=== PATIENT | female | born 1995 | race Caucasian/White ===

== ENCOUNTER 2021-10-27 13:54 | Emergency (ER) | payer MEDICAID, SELFPAY | END 2021-10-27 22:49 | disposition left against medical advice (07) | LOC: HO.ED 22:45 | PROVIDERS: Emergency Provider Emergency Medicine | DX: R10.9 Unspecified abdominal pain (principal) ==

== ENCOUNTER 2022-01-13 01:15 | Emergency (ER) | payer MEDICAID, SELFPAY ==
[2022-01-13 01:26] VITALS: BP 111/72; PULSE 83; RESP 14; TEMP 36.5; O2SAT 96
[2022-01-13 01:39] VITALS: BP 111/72; BP 121/81; PULSE 100; PULSE 83; RESP 14; TEMP 36.5; O2SAT 96; O2SAT 99; BMI 19.5
--- NOTE | 2022-01-13 01:49 | ED.NAVMDI ---
HPI - Nausea/Vomiting/Diarrhea General Chief complaint: Nausea/Vomiting/Diarrhea Stated complaint: N/V/D/ABD PAIN Time Seen by Provider: 01/13/22 01:47 Source: patient and EMS Mode of arrival: EMS Limitations: no limitations History of Present Illness HPI Narrative: 26-year-old female came in for evaluation of nausea, vomiting, diarrhea. Symptoms started 3 days ago, recently came back from [place] for a family gathering democrat, multiple family member reportedly had similar symptoms of nausea, vomiting, diarrhea including the patient's children, patient's symptoms started with nausea and vomiting that is now improving, but patient is having a frequent nonbloody watery diarrhea. Patient complained of no abdominal pain. Related Data Previous Rx's Medication Instructions Recorded loperamide 2 mg capsule (Imodium 2 mg PO Q6H PRN #6 cap 01/13/22 A-D) Allergies Allergy/AdvReac Type Severity Reaction Status Date / Time morphine [MORPHINE] Allergy Unknown VOMITING, Verified 01/13/22 03:28 nausea and vomiting Review of Systems Review of Systems: All other systems are reviewed and are negative Constitutional: Reports as per HPI and Reports no additional constitutional complaints Eyes: Reports as per HPI and Reports no additional eye complaints Reports system reviewed and no additional complaints, except as documented Cardiovascular: Reports as per HPI and Reports no additional cardiovascular complaints Respiratory: Reports as per HPI and Reports no additional respiratory complaints Gastrointestinal: Reports as per HPI and Reports no additional gastrointestinal complaints Genitourinary: Reports no additional female genitourinary complaints Musculoskeletal: Reports no additional musculoskeletal complaints Skin/Breast: Reports system reviewed and no additional complaints, except as docu Psychiatric: Reports no additional psychiatric complaints Endocrine: Reports no additional endocrine complaints Hematologic/Lymphatic: Reports no additional hematologic/lymphatic complaints Allergic/Immunologic: Reports no additional allergic/immunologic complaints Reports system reviewed and no additional complaints, except as documented and Reports Abnormal speech present [facility] Past Medical History Medical History No known health problems Surgical History No history of previous surgery Social History Social History Alcohol intake: never Patient Tobacco Use Status: Current everyday Tobacco user Use of substances other than those prescribed or required for medical reasons: No Advance Directives: No Advance Directives Information Provided: Yes Patient : No Physical Exam Vital Signs: Vital Signs: Last Vital Signs Temp 97.7 F 01/13/22 01:39 Pulse 83 01/13/22 01:39 Resp 14 01/13/22 01:39 BP 111/72 01/13/22 01:39 Pulse Ox 96 01/13/22 01:39 BMI result Body Mass Index 19.5 Vital signs have been reviewed as appeared to be correct. Blood pressure normal. Heart rate normal. Respiration rate normal. Temperature normal. Oxygen saturation normal. Appearance: Alert. Oriented X3. No acute distress. Head: Normal external exam. Normocephalic. Atraumatic. No Rondon signs noted. No raccoon eyes noted Eyes: PERRLA. EOMI. Conjunctiva and sclera normal. Eyelids normal. ENT: TM's Normal. Pharynx normal. Uvula midline. Moist mucous membranes. No trismus noted. No drooling noted. No muffled voice noted. Neck: Normal inspection. Neck supple. FROM. No adenopathy. Thyroid Normal. No meningeal signs. No neck mass noted. CVS: Normal heart rate and rhythm. Heart sound normal. No murmurs noted. Pulses normal throughout. Respiratory: No respiratory distress. Painless inspiration. Breath sounds normal. No wheezes/rales/rhonchi noted. Chest nontender. No accessory muscle usage noted or decreased air movement noted. Abdomen: Soft and nontender. Bowel sounds normal in all 4 quadrants. No distention noted. No organomegaly noted. No visible injury noted. Back: No CVA tenderness. Full range of motion noted. Skin: Skin warm and dry. Normal skin color. Normal skin turgor. No rashes/lesions/lacerations noted. Extremities: No lower extremity edema. Extremities exhibit normal range of motion. Extremities nontender. Neuro: Oriented X 3. Cranial nerve exam: II-XII are grossly intact No motor deficit. No sensory deficit. Reflexes normal. Course Course Course Narrative: Assessment and plan. 26-year-old female came in with 4-5 days of gastroenteritis symptoms with many family member with the same symptoms, improvement of the nausea and vomiting but persisting nonbloody watery diarrhea, patient received in the emergency department 2 L of normal saline, Ativan for anxiety, and Imodium for diarrhea control. Repeat abdominal exam showed no tenderness, no rebound, no guarding. Able to tolerate p.o. intake. MDM - Nausea/Vomiting/Diarrhea MDM Narrative Medical decision making narrative: Assessment and plan. Gastroenteritis. Patient is able to tolerate p.o. intake and received IV hydration in the emergency department, patient also received Imodium. Will discharge with instruction to drink plenty of fluids for hydration. Lab Data Attestation: I reviewed the patient's lab results. Result diagrams: 01/13/22 02:27 01/13/22 02:27 Labs: Lab Results 01/13/22 01/13/22 01/13/22 Range/Units 02:25 02:25 02:27 WBC 9.9 (4.8-10.8) X10*3/uL RBC 6.15 H (4.20-5.50) X10*6/uL Hgb 16.7 H (12.0-16.0) g/dl Hct 54.2 H (37.0-47.0) % MCV 88.1 (80.0-98.0) fL MCH 27.2 (27.0-33.0) pg MCHC 30.8 L (31.0-35.0) g/dl RDW 13.7 (11.0-16.0) % Plt Count 375 (160-400) X10*3/uL MPV 9.7 (9.4-12.3) fL Immature Gran % (Auto) 0.4 (0.0-0.4) % Neut % (Auto) 76.4 H (45-73) % Lymph % (Auto) 13.8 L (20-40) % Curry % (Auto) 8.7 (2-11) % Eos % (Auto) 0.4 (0-4) % Baso % (Auto) 0.3 (0-2) % Lymph # (Auto) 1.4 (1.2-4.9) X10*3/uL Curry # (Auto) 0.9 (0.1-1.2) X10*3/uL Eos # (Auto) 0.0 (0.0-0.4) X10*3/uL Baso # (Auto) 0.0 (0.0-0.2) X10*3/uL Abs Immat Gran (auto) 0.04 H (0.00-0.03) X10*3/uL Absolute Neuts (auto) 7.6 (2.0-8.3) x10*3/uL Absolute Nucleated RBC 0.000 (0.0-0.012) X10*3/uL Nucleated RBC % (auto) 0.0 (0.0-0.2) /100WBC Sodium (135-145) mmol/L Potassium (3.3-5.1) mmol/L Chloride (96-108) mmol/L Carbon Dioxide (22-29) mmol/L Anion Gap (12-20) BUN (9-16) mg/dL Creatinine (0.5-1.4) mg/dL Estim Creat Clear Calc Estimated GFR Random Glucose (60-115) mg/dL Calcium (8.4-10.2) mg/dL Lipase (8-78) U/L Urine Color YELLOW Urine Appearance CLEAR Urine pH 5.5 (5.0-8.0) Ur Specific [place] >= 1.030 H (1.005-1.025) Urine Protein TRACE (NEG-TRACE) MG/DL Urine Glucose (UA) NEG (NEG) MG/DL Urine Ketones NEG (NEG) MG/DL Urine Blood NEG (NEG) Urine Nitrite NEG (NEG) Ur Leukocyte Esterase NEG (NEG) Urine Test NEGATIVE (NEGATIVE) 01/13/22 Range/Units 02:27 WBC (4.8-10.8) X10*3/uL RBC (4.20-5.50) X10*6/uL Hgb (12.0-16.0) g/dl Hct (37.0-47.0) % MCV (80.0-98.0) fL MCH (27.0-33.0) pg MCHC (31.0-35.0) g/dl RDW (11.0-16.0) % Plt Count (160-400) X10*3/uL MPV (9.4-12.3) fL Immature Gran % (Auto) (0.0-0.4) % Neut % (Auto) (45-73) % Lymph % (Auto) (20-40) % Curry % (Auto) (2-11) % Eos % (Auto) (0-4) % Baso % (Auto) (0-2) % Lymph # (Auto) (1.2-4.9) X10*3/uL Curry # (Auto) (0.1-1.2) X10*3/uL Eos # (Auto) (0.0-0.4) X10*3/uL Baso # (Auto) (0.0-0.2) X10*3/uL Abs Immat Gran (auto) (0.00-0.03) X10*3/uL Absolute Neuts (auto) (2.0-8.3) x10*3/uL Absolute Nucleated RBC (0.0-0.012) X10*3/uL Nucleated RBC % (auto) (0.0-0.2) /100WBC Sodium 143 (135-145) mmol/L Potassium 5.4 H (3.3-5.1) mmol/L Chloride 112 H (96-108) mmol/L Carbon Dioxide 20 L (22-29) mmol/L Anion Gap 16 (12-20) BUN 14 (9-16) mg/dL Creatinine 1.37 (0.5-1.4) mg/dL Estim Creat Clear Calc 55.2 Estimated GFR 46 Random Glucose 75 (60-115) mg/dL Calcium 10.4 H (8.4-10.2) mg/dL Lipase 17 (8-78) U/L Urine Color Urine Appearance Urine pH (5.0-8.0) Ur Specific [place] (1.005-1.025) Urine Protein (NEG-TRACE) MG/DL Urine Glucose (UA) (NEG) MG/DL Urine Ketones (NEG) MG/DL Urine Blood (NEG) Urine Nitrite (NEG) Ur Leukocyte Esterase (NEG) Urine Test (NEGATIVE) Discharge Plan Discharge Clinical Impression: Gastroenteritis Patient Disposition: Home, Self-Care Instructions: Gastroenteritis (ED) Prescriptions: New loperamide [Imodium A-D] 2 mg capsule 2 mg PO Q6H PRN (Reason: loose stool) Qty: 6 0RF Referrals: Jade Lucia PA [Primary Care Provider] -
[2022-01-13] MEDS: 0.9 % Sodium Chloride 1,000 ML 999 ML IV ×2 (02:31→03:59)
[2022-01-13 02:32] LABS: Basophils Percent Auto 0.3 % (0-2); Eosinophils Percent Auto 0.4 % (0-4); Hematocrit 54.2 % (37.0-47.0); Hemoglobin 16.7 g/dl (12.0-16.0); Imm Gran Abs Auto 0.04 X10*3/uL (0.00-0.03); Imm Gran Pct Auto 0.4 % (0.0-0.4); Lymphocytes Absolute Auto 1.4 X10*3/uL (1.2-4.9); Lymphocytes Percent Auto 13.8 % (20-40); MANUAL DIFF FLAG NO; Mean Corpuscular HGB Conc 30.8 g/dl (31.0-35.0); Mean Corpuscular Hemoglobin 27.2 pg (27.0-33.0); Mean Corpuscular Volume 88.1 fL (80.0-98.0); Mean Platelet Volume 9.7 fL (9.4-12.3); Monocytes Absolute Auto 0.9 X10*3/uL (0.1-1.2); Monocytes Percent Auto 8.7 % (2-11); Neutrophils Absolute Auto 7.6 x10*3/uL (2.0-8.3); Neutrophils Percent Auto 76.4 % (45-73); Platelet Count 375 X10*3/uL (160-400); Red Blood Count 6.15 X10*6/uL (4.20-5.50); Red Cell Distribution Width 13.7 % (11.0-16.0); White Blood Count 9.9 X10*3/uL (4.8-10.8)
[2022-01-13] MEDS: Loperamide HCl 2 MG CAPSULE PO ×2 (02:33→03:40)
[2022-01-13 02:34] LABS: Appearance Urine CLEAR; Color Urine YELLOW; Glucose Urine UA NEG (NEG); Leukocyte Esterase Urine NEG (NEG); Nitrite Urine NEG (NEG); PH 5.5 (5.0-8.0); Specific Gravity - Urine >= 1.030 (1.005-1.025); Urine Blood NEG (NEG); Urine Ketones NEG (NEG); Urine Protein TRACE MG/DL (NEG-TRACE)
[2022-01-13 02:36] LABS: UPreg QC Valid YES; Urine Pregnancy NEGATIVE (NEGATIVE)
[2022-01-13 02:53] LABS: Anion Gap 16 (12-20); Blood Urea Nitrogen 14 mg/dL (9-16); Calcium 10.4 mg/dL (8.4-10.2); Carbon Dioxide 20 mmol/L (22-29); Chloride 112 mmol/L (96-108); Creatinine Clr Calc Pharmacy 55.2; Estimated Glomerular Filt Rate 46; Glucose Random 75 mg/dL (60-115); Lipase 17 U/L (8-78); Potassium 5.4 mmol/L (3.3-5.1); Sodium 143 mmol/L (135-145)
[2022-01-13] MEDS: LORazepam 1 MG TABLET PO (03:40)
--- NOTE | 2022-01-13 03:41 | PC.NURSE ---
Patient has been verbally abusive to staff. Screaming and yelling at staff about us not helping her. Staff has medicated her and given her anything she asked for.
[2022-01-13 05:17] VITALS: PULSE 84; RESP 17; O2SAT 96
== END 2022-01-13 06:14 | disposition home or self-care (01) ==
PROVIDERS: Emergency Provider Emergency Medicine; PCP Physician Assistant
DX: K52.9 Noninfective gastroenteritis and colitis, unspecified (principal); R11.2 Nausea with vomiting, unspecified; F17.200 Nicotine dependence, unspecified, uncomplicated
CPT/HCPCS: 36415; 80048; 81003; 81025; 83690; 85025; 96360; 96361; 99284

== ENCOUNTER 2022-02-21 08:45 | Outpatient (RCR) | payer OTHER, SELFPAY ==
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
--- NOTE | 2022-02-10 14:39 | PC.NURSE ---
Case opened in treatment team
--- NOTE | 2022-02-12 11:14 | P.PNPSP_ITS ---
Subjective Subjective Date of Service: 02/12/22 Reason For Visit: PTSD,bipolar,anxiety,depression Guardianship: No Medical Problems Affecting Mental Status: No Interim History: Reports continued anxiety and depression. Upset earlier in day, frustrated. I need to process my feelings Finding groups helpful. No SI/HI reported, no safety concern at this time. Stopped prn quetiapine, was too sedating. Medication Compliance: Yes Side effects from medications: Yes (P.r.n. quetiapine 12.5 mg was too sedating, stopped after 1 day.) Attending Groups: Yes Review of Systems Acute medical concerns: No Medical Review of Systems: unchanged Mental Status Exam Mental Status Exam Narrative: NAD. Anxious, irritable affect. Denies SI/HI. Patient Appearance: Appropriate Patient Orientation: Person, Place, Time and Situation Level of Consciousness: Awake and Alert Patient Behavior: Talkative, Cooperative, Anxious and Good Eye Contact Mood Description: Depressed and Anxious Affect Description: Anxious (irritable at times. ) Patient Cognition Impaired: No Ability to Follow Directions: Good Speech Pattern: Clear, Spontaneous Speech, Rapid, Excessive and Pressured Memory Description: Intact Hallucinations: None Delusions: Not Present Perceptual Disturbances: Depersonalization Thought Process: Intact Thought Content: positive for Intact Depressive Symptoms: Increased Anxiety, Increased Irritability, Loss of Int. in Activity, Feelings of Guilt, Unhappiness and Difficulty Concentrating Judgement: Fair Assessment & Plan Assessment & Plan (1) Major depressive disorder, recurrent, moderate: Status: Acute Code(s): F33.1 - Major depressive disorder, recurrent, moderate Assessment and Plan: Reports continued anxiety and depression. States ?my anxiety and depression are still out of control ?. Requesting medication change for anxiety, as well as difficulty managing emotional lability. Upset earlier in day, frustrated. I need to process my feelings . States that a person that helps her while she is in [place] and is also it very reliable person did not show up this morning. She became tearful, and called her father. He left work in order to help her. Finding groups helpful. No SI/HI reported, no safety concern at this time. Stopped prn quetiapine, was too sedating. Reports that she took it 1 day, and fell asleep. She states that she was unable to function with it during the day. We discussed stopping the p.r.n. Seroquel, and starting p.r.n. hydroxyzine. She was in agreement with this plan. Also discussed increase of Trileptal this week. She was in agreement. (2) Post-traumatic stress disorder, chronic: Status: Acute Code(s): F43.12 - Post-traumatic stress disorder, chronic Assessment and Plan: Patient reports her children's father is getting at a long-term soon, which is causing her increased PTSD symptoms as well as anxiety. She states that she needs to work to have a plan in place for safety. (3) Attention-deficit hyperactivity disorder, predominantly hyperactive type: Status: Acute Code(s): F90.1 - Attention-deficit hyperactivity disorder, predominantly hyperactive type Plan 1. Continue with current [facility] plan of care 2. Discontinue p.r.n. quetiapine during day. 3. Add hydroxyzine 25 mg q.i.d. p.r.n. for anxiety. 4. Increase Trileptal to 450 mg b.i.d.. Patient educated on: diagnosis, medication risk/benefits and therapeutic strategies Informed Consent: understands Reason for contiued partial hosp. stay Substantial Risk for: inability to function, rapid decompensation and med/psych decompensation Certification I certify that partial hospital treatment is medically necessary due to the symptoms and problems resulting from the patient's mental illness and the failure to treat the patient at the partial hospital level of care would likely result in the patient requiring inpatient psychiatric care which could not be prevented at a less intensive level of care. I spent minutes with the patient and/or on the patient floor today, greater than?50% of which was spent counseling/coordinating care. Discharge Plan Discharge Attending provider: Hoang Britt Medications: New oxcarbazepine [Trileptal] 300 mg tablet 450 mg PO BID 7 Days Qty: 21 0RF hydroxyzine HCl 25 mg tablet 25 mg PO QID PRN (Reason: anxiety) Qty: 28 0RF No Action albuterol sulfate [ProAir HFA] 90 mcg/actuation Hfa Aerosol Inhaler 2 puff INHALATION Q4H PRN (Reason: Shortness Of Breath) 0RF duloxetine 20 mg Capsule,Delayed Release(Dr/Ec) 20 mg PO BID 0RF quetiapine [Seroquel] 50 mg Tablet 50 mg PO BEDTIME 0RF Stand Alone Forms: Patient Portal Discharge page Telehealth Telehealth Location of provider rendering services: practice address Location of patient: address on file Patient Identification confirmed using: Name, : Yes Telehealth method: video Patient verbally consented to treatment: Yes Patient verbally consented to billing insurance company: Yes Patient informed of any privacy concerns related to visit: Yes Minutes spent on Phone/Video with Pt.: 20
--- NOTE | 2022-02-19 16:13 | P.PNPSP_ITS ---
Subjective Subjective Date of Service: 02/19/22 Reason For Visit: PTSD,bipolar,anxiety,depression Guardianship: No Medical Problems Affecting Mental Status: No Interim History: Patient describes mood as ?much better ?. States that she stopped taking her medications after Thursday. States that Thursday she had a nervous breakdown, screaming, yelling. Reports that whole day crying and shaking, called her aunt to stay with her. States ?I need my medication back ?. No SI, no safety concern. Medication Compliance: No Attending Groups: Yes Review of Systems Acute medical concerns: No Medical Review of Systems: unchanged Review of Systems Review of Systems Yes all other systems are reviewed and are negative Constitutional: Reports no additional constitutional complaints Mental Status Exam Mental Status Exam Narrative: NAD. Anxious, irritable affect. Denies SI/HI. Patient Appearance: Appropriate Patient Orientation: Person, Place, Time and Situation Level of Consciousness: Awake and Alert Patient Behavior: Talkative, Cooperative, Anxious and Good Eye Contact Mood Description: Depressed and Anxious Affect Description: Anxious (irritable at times. ) and Labile Patient Cognition Impaired: No Ability to Follow Directions: Good Speech Pattern: Clear, Spontaneous Speech, Rapid, Excessive and Pressured Memory Description: Intact Hallucinations: None Delusions: Not Present Perceptual Disturbances: Depersonalization Thought Process: Intact Thought Content: positive for Intact Depressive Symptoms: Increased Anxiety, Increased Irritability, Loss of Int. in Activity, Feelings of Guilt, Unhappiness and Difficulty Concentrating Judgement: Fair Assessment & Plan Assessment & Plan (1) Major depressive disorder, recurrent, moderate: Status: Acute Code(s): F33.1 - Major depressive disorder, recurrent, moderate Assessment and Plan: Patient presents with labile mood. reports stopped taking her medications Trileptal and hydroxyzine abruptly after Thursday. Has miss past several days of medications. reports feeling overwhelmed, tearful at times. Angry with her outpatient provider, states that he will no longer provide her Ativan, which she believe she needs in order to control her anxiety. Also angry that he will not consider that she has ADHD and that she may need medications. She is asking that we communicate with him, and will ask him to call here. She is being discharged from program on Thursday. She plans to call his office today to schedule an appointment. She states that she does not like the way that her medications make her feel, but is now considering restarting them today. Asks for refills today. Has continued with Seroquel at bedtime, reports that this does help her sleep. No SI/HI/SIB, no safety concern at this time. (2) Post-traumatic stress disorder, chronic: Status: Acute Code(s): F43.12 - Post-traumatic stress disorder, chronic (3) Attention-deficit hyperactivity disorder, predominantly hyperactive type: Status: Acute Code(s): F90.1 - Attention-deficit hyperactivity disorder, predominantly hyperactive type Plan Patient has asked this provider to communicate with her outpatient provider. She states she would like to past my contact information on to her provider an ask him to call me. I told her this is fine, and that we also send a summary/list of medications to her providers upon discharge from [facility]. 1. Patient to resume Trileptal today. Also to resume p.r.n. hydroxyzine as needed. 2. Patient to continue other medications as prescribed. 3. Continue with current [facility] plan of care. 4. Follow-up as per protocol. Patient educated on: diagnosis, medication risk/benefits and therapeutic strategies Informed Consent: understands Reason for contiued partial hosp. stay Substantial Risk for: inability to function, rapid decompensation and med/psych decompensation Certification I certify that partial hospital treatment is medically necessary due to the symptoms and problems resulting from the patient's mental illness and the failure to treat the patient at the partial hospital level of care would likely result in the patient requiring inpatient psychiatric care which could not be prevented at a less intensive level of care. I spent minutes with the patient and/or on the patient floor today, greater than?50% of which was spent counseling/coordinating care. Discharge Plan Discharge Attending provider: Hoang Britt Medications: New oxcarbazepine [Trileptal] 300 mg tablet 450 mg PO BID 30 Days Qty: 90 0RF prazosin 1 mg capsule 1 mg PO BEDTIME 30 Days Qty: 30 0RF hydroxyzine HCl 25 mg tablet 25 mg PO QID PRN (Reason: anxiety) Qty: 60 0RF No Action albuterol sulfate [ProAir HFA] 90 mcg/actuation Hfa Aerosol Inhaler 2 puff INHALATION Q4H PRN (Reason: Shortness Of Breath) 0RF duloxetine 20 mg Capsule,Delayed Release(Dr/Ec) 20 mg PO BID 0RF quetiapine [Seroquel] 50 mg Tablet 50 mg PO BEDTIME 0RF Stand Alone Forms: Patient Portal Discharge page Telehealth Telehealth Location of provider rendering services: practice address Location of patient: address on file Patient Identification confirmed using: Name, : Yes Telehealth method: video Patient verbally consented to treatment: Yes Patient verbally consented to billing insurance company: Yes Patient informed of any privacy concerns related to visit: Yes Minutes spent on Phone/Video with Pt.: 15
--- NOTE | 2022-02-21 18:15 | PC.NURSE ---
Discharge note: Patient discharged from [facility] 02/21/22. Routine discharge, patient states she is ready for discharge. Discharge to out patient providers. Patient states understanding of medications. Patient denies SI and HI without plan or intent. Safety plan was faxed to patient prior to discharge.
== END 2022-02-21 23:59 | disposition home or self-care (01) ==
LOC: HO.PHPA 08:45
PROVIDERS: Visit Provider Psychiatry & Neurology Psychiatry
DX: F43.12 Post-traumatic stress disorder, chronic (principal); F33.1 Major depressive disorder, recurrent, moderate; F90.1 Attention-deficit hyperactivity disorder, predominantly hyperactive type; Z79.899 Other long term (current) drug therapy
CPT/HCPCS: 90791; 90853

== ENCOUNTER 2022-06-02 16:37 | Emergency (ER) | payer MEDICAID, SELFPAY ==
[2022-06-02 17:10] VITALS: BP 121/69; PULSE 95; RESP 18; TEMP 36.5; O2SAT 96; BMI 21.9
[2022-06-02 17:24] LABS: MANUAL DIFF FLAG NO
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
[2022-06-02 17:36] LABS: Basophils Absolute Auto 0.1 X10*3/uL (0.0-0.2); Basophils Percent Auto 0.8 % (0-2); Eosinophils Absolute Auto 0.2 X10*3/uL (0.0-0.4); Eosinophils Percent Auto 1.5 % (0-4); Hematocrit 41.4 % (37.0-47.0); Hemoglobin 13.5 g/dl (12.0-16.0); Imm Gran Abs Auto 0.04 X10*3/uL (0.00-0.03); Imm Gran Pct Auto 0.4 % (0.0-0.4); Lymphocytes Absolute Auto 2.9 X10*3/uL (1.2-4.9); Lymphocytes Percent Auto 28.9 % (20-40); Mean Corpuscular HGB Conc 32.6 g/dl (31.0-35.0); Mean Corpuscular Hemoglobin 27.7 pg (27.0-33.0); Mean Platelet Volume 10.4 fL (9.4-12.3); Monocytes Absolute Auto 0.7 X10*3/uL (0.1-1.2); Monocytes Percent Auto 6.6 % (2-11); Neutrophils Absolute Auto 6.2 x10*3/uL (2.0-8.3); Neutrophils Percent Auto 61.8 % (45-73); Platelet Count 303 X10*3/uL (160-400); Red Blood Count 4.87 X10*6/uL (4.20-5.50); Red Cell Distribution Width 13.3 % (11.0-16.0)
[2022-06-02 17:44] LABS: Alanine Aminotransferase 10 U/L (0-31); Alkaline Phosphatase 61 U/L (39-117); Anion Gap 12 (12-20); Aspartate Amino Transferase 10 U/L (5-31); Bilirubin Direct 0.3 mg/dL (0.0-0.5); Bilirubin Total 0.6 mg/dL (0.0-1.0); Blood Urea Nitrogen 9 mg/dL (9-16); Calcium 8.9 mg/dL (8.4-10.2); Carbon Dioxide 27 mmol/L (22-29); Chloride 105 mmol/L (96-108); Creatinine Clr Calc Pharmacy 72.6; Estimated Glomerular Filt Rate > 60; Ethanol < 10 mg/dL; Glucose Random 65 mg/dL (60-115); Potassium 3.7 mmol/L (3.3-5.1); Sodium 140 mmol/L (135-145); Total Protein 6.8 g/dL (6.5-8.0)
[2022-06-02 17:46] LABS: COVID-19 Test Negative (Negative)
[2022-06-02 18:06] LABS: UPreg QC Valid YES; Urine Pregnancy NEGATIVE (NEGATIVE)
[2022-06-02 18:12] LABS: Amphetamine Screen Urine Not Detected (Not Detect); Barbiturates, Urine Not Detected (Not Detect); Benzodiazepines Screen Urine Not Detected (Not Detect); Cannabinoid Screen Urine POSITIVE (Not Detect); Cocaine Screen Urine Not Detected (Not Detect); Fentanyl, urine Not Detected (Not Detect); Opiate Screen Urine Not Detected (Not Detect); Phencyclidine Screen Urine Not Detected (Not Detect)
[2022-06-02 19:34] LABS: Appearance Urine Clear; Color Urine Yellow; Glucose Urine UA Negative (Negative); Leukocyte Esterase Urine Negative (Negative); Nitrite Urine Negative (Negative); PH 6.5 (5.0-8.0); Urine Blood Negative (Negative); Urine Ketones Negative (Negative); Urine Protein Negative (Neg-Trace)
[2022-06-02 23:16] VITALS: BP 105/62; PULSE 73; RESP 16; TEMP 36.3; O2SAT 98
[2022-06-03] MEDS: QUEtiapine Fumarate 50 MG TABLET PO (01:01)
[2022-06-03] MEDS: Prazosin HCL 5 MG CAPSULE 10 MG PO (01:01)
[2022-06-03] MEDS: LORazepam 1 MG TABLET PO (01:22)
--- NOTE | 2022-06-03 06:40 | PC.NURSE ---
Addendum entered by Junaid Lan RN 06/03/22 07:00: Patient's disposition per N is section 12 inpatient bed search. Original Note: Patient slept through the night, no distress observed/reported, medication compliant, patient was assessed by BHN, patient engaged well, behavior appropriate and non concerning, VSS, will continue to monitor.
--- NOTE | 2022-06-03 07:42 | PC.NURSE ---
patient appears to remain asleep at present respirations are even and unlabored patient appears in no distress.
[2022-06-03 08:48] VITALS: BP 108/72; PULSE 74; RESP 14; TEMP 36.9; O2SAT 97
[2022-06-03] MEDS: Nicotine 21 MG PATCH.TD24 TRANSDERMA (10:22)
[2022-06-03] MEDS: lamoTRIgine 25 MG TABLET 50 MG PO (10:23)
[2022-06-03] MEDS: Albuterol Sulfate 90 MCG 8 GM INHALER 2 PUFF INHALE (11:50)
== END 2022-06-03 14:17 | disposition home or self-care (01) ==
PROVIDERS: Emergency Provider Internal Medicine; PCP Physician Assistant
DX: F43.12 Post-traumatic stress disorder, chronic (principal); F33.1 Major depressive disorder, recurrent, moderate; Z20.822 Contact with and (suspected) exposure to COVID-19; F41.9 Anxiety disorder, unspecified; F90.1 Attention-deficit hyperactivity disorder, predominantly hyperactive type; F17.210 Nicotine dependence, cigarettes, uncomplicated; F12.90 Cannabis use, unspecified, uncomplicated; Z72.89 Other problems related to lifestyle; Z63.0 Problems in relationship with spouse or partner; Z65.3 Problems related to other legal circumstances; Z79.899 Other long term (current) drug therapy
CPT/HCPCS: 36415; 80053; 80307; 81003; 81025; 82077; 82248; 85025; 87635; 99284

== ENCOUNTER 2022-06-17 13:08 | Outpatient (REF) | payer OTHER, MEDICAID, SELFPAY ==
--- NOTE | 2022-06-17 13:43 | P.PNPSP_ITS ---
Subjective Subjective Date of Service: 06/17/22 Reason For Visit: F31.32 Medical Problems Affecting Mental Status: No Interim History: Describes mood as improving, less labile, although still experiencing some fluctuations. No SI, no safety concerns. Continues with poor sleep at times. Medication Compliance: Yes Side effects from medications: No Attending Groups: Yes Review of Systems Acute medical concerns: No Medical Review of Systems: unchanged Review of Systems Review of Systems Yes all other systems are reviewed and are negative Constitutional: Reports no additional constitutional complaints Mental Status Exam Mental Status Exam Narrative: Well-developed, thin female, in NAD. No abnormal movements, no tics or tremors. Posture, ambulation normal. Patient Appearance: Appropriate Patient Orientation: Person, Place, Time and Situation Level of Consciousness: Appropriate Patient Behavior: Appropriate and Cooperative Mood Description: Depressed, Anxious and Sad Affect Description: Depressed and Anxious Patient Cognition Impaired: No Ability to Follow Directions: Good Speech Pattern: Clear, Appropriate and Coherent Memory Description: Intact Hallucinations: None Delusions: Not Present Thought Process: Intact Thought Content: positive for Intact and positive for Perseveration Depressive Symptoms: Increased Anxiety, Diff. Making Decisions, Difficulty S leeping, Loss of Int. in Activity, Unhappiness, Increased Fatigue and Difficulty Concentrating Judgement: Fair Assessment & Plan Assessment & Plan (1) Major depressive disorder, recurrent, moderate: Status: Acute Code(s): F33.1 - Major depressive disorder, recurrent, moderate Assessment and Plan: Describes mood as improving, less labile, although still experiencing some fluctuations. No SI, no safety concerns. Continues with poor sleep at times. Discussed use of prazosin. She reports that the prazosin is working well with nightmares, but that she wakes up at some point during the night and has difficulty falling back asleep. We discussed current medication regimen including quetiapine, hydroxyzine, lorazepam, sleep hygiene. Patient reports she feels her mood is less labile, feels that Lamictal is somewhat helpful. Has been taking 100 mg daily for over 2 weeks. Discussed increase of dose to 150 x1 week and reassess. Patient asking about medication for ADHD. Discussed possibly adding Wellbutrin after another week of Lamictal on board to help lability. Discussed medication in detail, including risks, benefits, side effects both common and adverse. She was in agreement with this plan. (2) Post-traumatic stress disorder, chronic: Status: Acute Code(s): F43.12 - Post-traumatic stress disorder, chronic (3) Attention-deficit hyperactivity disorder, predominantly hyperactive type: Status: Acute Code(s): F90.1 - Attention-deficit hyperactivity disorder, predominantly hyperactive type Plan 1. Continue with current [facility] plan of care. 2. Increase lamotrigine to 150 mg daily. 3. Follow-up as per protocol. Patient educated on: diagnosis, medication risk/benefits, therapeutic strategies and medical condition Informed Consent: understands Reason for contiued partial hosp. stay Substantial Risk for: inability to function, rapid decompensation and med/psych decompensation Certification I certify that partial hospital treatment is medically necessary due to the symptoms and problems resulting from the patient's mental illness and the failure to treat the patient at the partial hospital level of care would likely result in the patient requiring inpatient psychiatric care which could not be pr evented at a less intensive level of care. I spent minutes with the patient and/or on the patient floor today, greater than?50% of which was spent counseling/coordinating care. Discharge Plan Discharge Patient Disposition: Home, Self-Care Discharge Medications: No Action hydroxyzine HCl 50 mg Tablet 50 mg PO TID PRN (Reason: Anxiety) methocarbamol 750 mg Tablet 750 mg PO QID PRN (Reason: Muscle Spasm) Label Comments: Patient has not picked up from pharmacy at present. ibuprofen [Motrin] 600 mg Tablet 600 mg PO TID lamotrigine 150 mg tablet 150 mg PO DAILY Qty: 7 0RF prazosin 5 mg capsule 2 cap PO BEDTIME fluticasone propionate [Flovent HFA] 220 mcg/actuation HFA aerosol inhaler 2 puff INHALATION BID lorazepam 1 mg tablet 1 tab PO BID PRN (Reason: Anxiety) albuterol sulfate [ProAir HFA] 90 mcg/actuation HFA aerosol inhaler 2 puff inhalation Q4H PRN (Reason: Shortness Of Breath Or Wheezing) quetiapine 50 mg tablet 1 tab PO BEDTIME
[2022-06-17 14:15] LABS: Amphetamine Screen Urine Not Detected (Not Detect); Barbiturates, Urine Not Detected (Not Detect); Benzodiazepines Screen Urine Not Detected (Not Detect); Cannabinoid Screen Urine POSITIVE (Not Detect); Cocaine Screen Urine Not Detected (Not Detect); Fentanyl, urine Not Detected (Not Detect); Opiate Screen Urine Not Detected (Not Detect); Phencyclidine Screen Urine Not Detected (Not Detect)
== END 2022-06-17 13:09 | disposition home or self-care (01) ==
LOC: HO.PHPLNP 13:08
PROVIDERS: Visit Provider Nurse Practitioner Psychiatric/Mental Health
DX: F33.1 Major depressive disorder, recurrent, moderate (principal); F90.1 Attention-deficit hyperactivity disorder, predominantly hyperactive type
CPT/HCPCS: 80307

== ENCOUNTER 2022-06-25 12:00 | Outpatient (REF) | payer MEDICAID, SELFPAY ==
[2022-06-25 15:06] LABS: Amphetamine Screen Urine Not Detected (Not Detect); Barbiturates, Urine Not Detected (Not Detect); Benzodiazepines Screen Urine Not Detected (Not Detect); Cannabinoid Screen Urine POSITIVE (Not Detect); Cocaine Screen Urine Not Detected (Not Detect); Fentanyl, urine Not Detected (Not Detect); Opiate Screen Urine Not Detected (Not Detect); Phencyclidine Screen Urine Not Detected (Not Detect)
== END 2022-06-25 12:01 | disposition home or self-care (01) ==
LOC: HO.LAB 12:00
PROVIDERS: PCP Family Medicine; Visit Provider Clinical Nurse Specialist Psychiatric/Mental Health, Child & Adolescent
DX: Z79.899 Other long term (current) drug therapy (principal)
CPT/HCPCS: 80307; 80346

== ENCOUNTER 2022-06-26 09:45 | Outpatient (RCR) | payer OTHER, SELFPAY ==
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
--- NOTE | 2022-06-20 08:43 | PC.NURSE ---
case opened in treatment team
--- NOTE | 2022-06-26 11:41 | P.PNPSP_ITS ---
Subjective Subjective Date of Service: 06/26/22 Reason For Visit: PTSD,bipolar,anxiety,depression Medical Problems Affecting Mental Status: No Interim History: Patient describes mood as ?good, I feel better than when I started here ?. No SI, no safety concerns. Feels the Lamictal 150 mg daily is helping. Feels stable for discharge from [facility]. Medication Compliance: Yes Side effects from medications: No Attending Groups: Yes Review of Systems Acute medical concerns: No Medical Review of Systems: unchanged Review of Systems Review of Systems Yes all other systems are reviewed and are negative Constitutional: Reports no additional constitutional complaints Mental Status Exam Mental Status Exam Patient Appearance: Appropriate Patient Orientation: Person, Place, Time and Situation Patient Behavior: Cooperative, Anxious and Crying (Tearful at times) Mood Description: Appropriate and Sad Affect Description: Appropriate and Sad Patient Cognition Impaired: No Ability to Follow Directions: Good Speech Pattern: Clear, Appropriate and Coherent Memory Description: Intact Hallucinations: None Delusions: Not Present Thought Process: Intact Thought Content: positive for Intact and positive for Perseveration (Focused on her children.) Depressive Symptoms: Crying Spells Judgement: Good Assessment & Plan Assessment & Plan (1) Major depressive disorder, recurrent, moderate: Status: Acute Code(s): F33.1 - Major depressive disorder, recurrent, moderate Assessment and Plan: Patient describes mood as ?good, I feel better than when I started here ?. Reports feeling less labile, less depressed. States that she feels more stable. No SI, no safety concerns. Feels the Lamictal 150 mg daily is helping. Tearful at times, mostly related to present circumstance with her children. Feels current medication regimen is working well. States that she has found the groups in this program to be helpful, that she has been able to practice new healthy coping skills. Feels ready for discharge from this program at this time. (2) Post-traumatic stress disorder, chronic: Status: Acute Code(s): F43.12 - Post-traumatic stress disorder, chronic (3) Attention-deficit hyperactivity disorder, predominantly hyperactive type: Status: Acute Code(s): F90.1 - Attention-deficit hyperactivity disorder, predominantly hyperactive type Plan 1. Refill of lamotrigine 150 mg sent to pharmacy. 2. Patient appears stable for discharge from [facility] at this time. 3. Patient to follow up with outpatient provider going forward. Patient educated on: diagnosis, medication risk/benefits and therapeutic strategies Informed Consent: understands Reason for contiued partial hosp. stay Substantial Risk for: stable for discharge Certification I certify that partial hospital treatment is medically necessary due to the symptoms and problems resulting from the patient's mental illness and the fa ilure to treat the patient at the partial hospital level of care would likely result in the patient requiring inpatient psychiatric care which could not be prevented at a less intensive level of care. I spent minutes with the patient and/or on the patient floor today, greater than?50% of which was spent counseling/coordinating care. Discharge Plan Discharge Attending provider: Hoang Britt Medications: New lamotrigine 150 mg tablet 150 mg PO DAILY Qty: 30 0RF Discontinued lamotrigine 25 mg tablet 100 mg PO DAILY Label Comments: Patient stated the dose was increased by one tab Q 2 weeks and is currently on 100 mg daily. No Action hydroxyzine HCl 50 mg Tablet 50 mg PO TID PRN (Reason: Anxiety) methocarbamol 750 mg Tablet 750 mg PO QID PRN (Reason: Muscle Spasm) Label Comments: Patient has not picked up from pharmacy at present. ibuprofen [Motrin] 600 mg Tablet 600 mg PO TID quetiapine 25 mg Tablet 12.5 - 25 mg PO BID PRN (Reason: Anxiety) Label Comments: Confirmed with patient's pictures of her prescription bottle and Medication history. Rx Instructions: 1/2 tab to 1 tab BID PRN for anxiety. prazosin 5 mg capsule 2 cap PO BEDTIME fluticasone propionate [Flovent HFA] 220 mcg/actuation HFA aerosol inhaler 2 puff INHALATION BID lorazepam 1 mg tablet 1 tab PO BID PRN (Reason: Anxiety) albuterol sulfate [ProAir HFA] 90 mcg/actuation HFA aerosol inhaler 2 puff inhalation Q4H PRN (Reason: Shortness Of Breath Or Wheezing) quetiapine 50 mg tablet 1 tab PO BEDTIME Stand Alone Forms: Patient Portal Discharge page Patient Education: Depression (DC), Post Traumatic Stress Disorder (DC)
== END 2022-06-27 23:59 | disposition home or self-care (01) ==
LOC: HO.PHPA 09:45
PROVIDERS: Visit Provider Psychiatry & Neurology Psychiatry
DX: F43.12 Post-traumatic stress disorder, chronic (principal); F33.1 Major depressive disorder, recurrent, moderate; F90.1 Attention-deficit hyperactivity disorder, predominantly hyperactive type; Z79.899 Other long term (current) drug therapy
CPT/HCPCS: 90791; 90853

== ENCOUNTER 2022-09-22 13:21 | Outpatient (REF) | payer MEDICAID, SELFPAY ==
[2022-09-22 14:15] LABS: Benzodiazepines Screen Urine Not Detected (Not Detect)
[2022-09-22 14:16] LABS: Amphetamine Screen Urine Not Detected (Not Detect); Barbiturates, Urine Not Detected (Not Detect); Benzodiazepines Screen Urine Not Detected (Not Detect); Cannabinoid Screen Urine POSITIVE (Not Detect); Cocaine Screen Urine Not Detected (Not Detect); Fentanyl, urine Not Detected (Not Detect); Opiate Screen Urine Not Detected (Not Detect); Phencyclidine Screen Urine Not Detected (Not Detect)
== END 2022-09-22 13:22 | disposition home or self-care (01) ==
LOC: HO.LAB 13:21
PROVIDERS: PCP Family Medicine; Visit Provider Clinical Nurse Specialist Psychiatric/Mental Health, Child & Adolescent
DX: F19.10 Other psychoactive substance abuse, uncomplicated (principal); Z79.899 Other long term (current) drug therapy
CPT/HCPCS: 80307

== ENCOUNTER 2023-07-03 08:17 | Emergency (ER) | payer MEDICAID, SELFPAY ==
--- NOTE | 2023-07-03 08:23 | ED.GENADULT ---
HPI - General Adult General Chief complaint: Back Pain/Injury Stated complaint: back pain Time Seen by Provider: 07/03/23 08:18 Source: patient Mode of arrival: ambulatory Limitations: no limitations History of Present Illness HPI narrative: Patient is a 27 year old assigned female at with a history of PTSD presenting to the emergency department today with mid left back pain. Patient states that approximately 1 month ago she sneezed forcefully and has had intermittent pain in her left back since. Patient states that it wasn't bothering her too much but now something seems to have spasmed and is causing constant pain. Patient denies any dizziness, lightheadedness, abdominal pain, nausea, vomiting, fever, chills, blurry vision, double vision, loss of vision, chest pain, difficulty breathing, shortness of breath, night sweats, pain with urination, increased urinary frequency, increased urinary urgency, blood in her urine or stool, syncope or a near syncopal episode, recent trauma or falls, bowel incontinence, bladder incontinence, bowel retention, bladder retention, or any other complaints at this time. Location: back Radiation: non-radiation Severity: mild Severity scale (1-10): 3 Quality: constant Pain Consistency: constant Relieving factors: none Exacerbating factors: none Associated symptoms: denies other symptoms Treatments prior to arrival: none Related Data Home Medications Medication Instructions Recorded Confirmed albuterol sulfate 90 mcg/actuation 2 puff inhalation Q4H PRN 06/02/22 06/13/22 aerosol inhaler (ProAir HFA) Shortness Of Breath Or Wheezing fluticasone propionate 220 2 puff inhalation BID 06/02/22 06/13/22 mcg/actuation HFA aerosol inhaler (Flovent HFA) lorazepam 1 mg tablet 1 tab PO BID PRN Anxiety 06/02/22 06/13/22 prazosin 5 mg capsule 2 cap PO BEDTIME dizziness 06/02/22 06/13/22 quetiapine 50 mg tablet 1 tab PO BEDTIME 06/02/22 06/13/22 hydroxyzine HCl 50 mg tablet 50 mg PO TID PRN Anxiety 06/13/22 06/13/22 ibuprofen 600 mg tablet 600 mg PO TID 06/13/22 06/13/22 quetiapine 25 mg tablet 12.5 - 25 mg PO BID PRN Anxiety 06/18/22 06/18/22 Previous Rx's Medication Instructions Recorded lamotrigine 150 mg tablet 150 mg PO DAILY #30 tabs 06/26/22 cyclobenzaprine 5 mg tablet 5 mg PO TID PRN muscle spasm 7 07/03/23 days #21 tabs naproxen 500 mg tablet 500 mg PO BID 7 days #14 tabs 07/03/23 prednisone 20 mg tablet 20 mg PO DAILY 7 days #7 tabs 07/03/23 Allergies Allergy/AdvReac Type Severity Reaction Status Date / Time morphine [MORPHINE] Allergy Unknown VOMITING, Verified 01/13/22 03:28 nausea and vomiting Review of Systems Constitutional: Constitutional: Reports no additional constitutional complaints, Denies chills, Denies fever(s) and Denies night sweats Eyes: Eyes: Reports no additional eye complaints, Denies blurry vision, Denies change in vision, Denies diplopia, Denies eye discharge, Denies loss of vision and Denies eye pain ENT: Denies dizziness Cardiovascular: Cardiovascular: Reports no additional cardiovascular complaints, Denies chest pain, Denies lightheadedness, Denies Loss of Consciousness and Denies dyspnea Respiratory: Respiratory: Reports no additional respiratory complaints and Denies dyspnea Gastrointestinal: Gastrointestinal: Reports no additional gastrointestinal complaints, Denies abdominal pain, Denies melena, Denies hematochezia, Denies change in bowel habits and Denies change in stool character Genitourinary: Genitourinary: Denies hematuria, Denies urinary frequency, Denies dysuria, Denies urinary incontinence, Denies urinary hesitancy and Denies urinary urgency Musculoskeletal: Musculoskeletal: Reports no additional musculoskeletal complaints, Reports back pain, Denies numbness and Denies tingling Neurologic: Denies dizziness, Denies loss of vision, Denies numbness and Denies tingling Psychiatric: Psychiatric: Reports no additional psychiatric complaints Endocrine: Endocrine: Reports no additional endocrine complaints Hematologic/Lymphatic: Hematologic/Lymphatic: Reports no additional hematologic/lymphatic complaints Allergic/Immunologic: Allergic/Immunologic: Reports no additional allergic/immunologic complaints PMFSH Past Medical History Attestation statement: The following information was validated with the patient. Source: old records reviewed and nursing notes reviewed Medical History L1 vertebral fracture No known health problems Surgical History No history of previous surgery Social History Social History Household Members: Other Household Members Other:: Currently living with aunt,awaiting reunification w/children Alcohol intake: never Patient Tobacco Use Status: Current everyday Tobacco user Tobacco use type: Cigarette Cigarette Packs Per Day: 1 Cigarettes Per Day: 20 Years Smoked: Since age 15 Advance Directives: No Advance Directives Information Provided: No Physical Exam ED Vital Signs: Vital Signs - 24 hr 07/03/23 08:28 Temperature 99 F Pulse Rate 90 Respiratory Rate 18 Blood Pressure 111/61 Pulse Oximetry 99 BMI result Body Mass Index 22.1 Const General: cooperative, no acute distress, alert and awake Nutritional Appearance: well nourished Orientation/consciousness: patient oriented x3 Limitations: no limitations HENMT Head: Yes normal to inspection and Yes atraumatic Ears: hearing grossly normal bilaterally and external ears normal General nose exam: Normal external nose present, no nasal discharge noted and no epistaxis Face and sinus: Yes normal facial exam, No abrasion and No laceration Mouth: Normal oral and palatal mucosa present, no drooling and no muffled voice Eyes General: appearance normal, both eyes and all related structures Periorbital: periorbital findings normal Eyelids: Yes eyelids normal Conjunctivae: conjunctivae normal Pupils: Equal, round and reactive pupils present EOM: EOMs intact bilaterally Neck Neck: Yes normal visual inspection, Yes full ROM and Yes no lymphadenopathy Chest Chest palpation & inspection: normal inspection of the chest Resp Effort & Inspection: normal respiratory effort and able to speak in complete sentences GI Inspection: Yes normal to inspection General: Yes no CVA tenderness Back/Spine/Pelvis Back: no CVA tenderness Cervical Spine: normal cervical lordosis and cervical ROM normal Thoracic/Lumbar Spine: thoracic and lumbar spine normal to inspection and thoraco-lumbar ROM normal Pelvis: no pain with anterior-posterior compression Neuro General: patient oriented x3 and moves all extremities Cranial nerves: Yes Equal, round and reactive pupils present Cognition (Neuro): normal cognition Motor exam (neuro): 5/5 motor strength present throughout Sensory Exam: Normal double simultaneous stimulation for sensation Coordination: [id number] test normal Extrem Other: patient has a walking boot in place on her right foot General: Yes capillary refill normal Psych Appearance: grossly normal Mental Status: mental status grossly normal Affect: normal affect Attitude: cooperative Thought process: Normal thought process present Thought content: Normal thought content present Insight: Good insight present (Psych) Medications Administered Discontinued Medications Generic Name Dose Route Start Last Admin Trade Name Anil PRN Reason Stop Dose Admin Cyclobenzaprine HCl 5 mg 07/03/23 08:42 07/03/23 08:52 Cyclobenzaprine Hcl 5 Mg Tablet PO 07/03/23 08:43 5 mg ONCE ONE Administration Ketorolac Tromethamine 15 mg 07/03/23 08:42 07/03/23 08:52 Ketorolac Tromethamine 15 Mg/Ml Vial IM 07/03/23 08:43 15 mg ONCE ONE Administration Prednisone 20 mg 07/03/23 08:42 07/03/23 08:52 Prednisone 20 Mg Tablet PO 07/03/23 08:43 20 mg ONCE ONE Administration Medical Decision Making Medical Decision Making MDM Narrative: Patient is a 27 year old assigned female at with a history of PTSD presenting to the emergency department today with left sided back pain. Patient's physical exam was unremarkable. I explained my physical exam findings to the patient. I answered all questions asked by the patient. Patient received PO Flexeril and Prednisone with IM Toradol which she stated helped her symptoms significantly. I stressed the importance of the patient taking her medication as prescribed. I stressed the importance of the patient following up with her primary care provider. I stressed the importance of the patient returning to the emergency department immediately if her symptoms were to worsen or if she were to develop any dizziness, shortness of breath, difficulty breathing, chest pain, blurry vision, loss of vision, nausea, vomiting, abdominal pain, fever, chills, back pain, or any other complaints. Patient verbalized agreement and understanding with this treatment plan and discharge. Differential Diagnosis Differential Diagnoses: The differential diagnosis associated with the presentation includes Back strain Back pain Muscle spasm Tests considered The following testing was considered but not selected: Imaging was considered however, it is not clinically indicated at this time. Prescription Management I considered prescription management with: Pain Medication (patient prescribed pain medication.) Discharge Plan Discharge Clinical Impression: Back pain Patient Disposition: Home, Self-Care Instructions: Back Pain (ED) Additional Instructions: Apply heat to the affected area. Follow up with your primary care provider. Return to the emergency department immediately if your symptoms worsen or if you develop any dizziness, shortness of breath, difficulty breathing, chest pain, blurry vision, loss of vision, nausea, vomiting, abdominal pain, fever, chills, back pain, or any other complaints. Prescriptions: New cyclobenzaprine 5 mg tablet 5 mg PO TID PRN (Reason: muscle spasm) 7 Days Qty: 21 0RF prednisone 20 mg tablet 20 mg PO DAILY 7 Days Qty: 7 0RF naproxen 500 mg tablet 500 mg PO BID 7 Days Qty: 14 0RF No Action hydroxyzine HCl 50 mg Tablet 50 mg PO TID PRN (Reason: Anxiety) ibuprofen [Motrin] 600 mg Tablet 600 mg PO TID quetiapine 25 mg Tablet 12.5 - 25 mg PO BID PRN (Reason: Anxiety) Patient Comments: Confirmed with patient's pictures of her prescription bottle and Medication history. Rx Instructions: 1/2 tab to 1 tab BID PRN for anxiety. lamotrigine 150 mg tablet 150 mg PO DAILY Qty: 30 0RF prazosin 5 mg capsule 2 cap PO BEDTIME fluticasone propionate [Flovent HFA] 220 mcg/actuation HFA aerosol inhaler 2 puff INHALATION BID lorazepam 1 mg tablet 1 tab PO BID PRN (Reason: Anxiety) albuterol sulfate [ProAir HFA] 90 mcg/actuation HFA aerosol inhaler 2 puff inhalation Q4H PRN (Reason: Shortness Of Breath Or Wheezing) quetiapine 50 mg tablet 1 tab PO BEDTIME Referrals: Sharmaine Crockett DO [Primary Care Provider] - Print Language: Japanese
[2023-07-03 08:28] VITALS: BP 111/61; PULSE 90; RESP 18; TEMP 37.2; O2SAT 99; BMI 22.1
[2023-07-03] MEDS: predniSONE 20 MG TABLET PO (08:52)
[2023-07-03] MEDS: Cyclobenzaprine HCl 5 MG TABLET PO (08:52)
[2023-07-03] MEDS: Ketorolac Tromethamine 15 MG/ML VIAL IM (08:52)
== END 2023-07-03 09:30 | disposition home or self-care (01) ==
PROVIDERS: Emergency Provider Emergency Medicine Emergency Medical Services; PCP Family Medicine
DX: M54.50 Low back pain, unspecified (principal); Z79.899 Other long term (current) drug therapy
CPT/HCPCS: 96372; 99283; 99284; J1885